=== PATIENT | male | born 1980 | race Caucasian/White ===

== ENCOUNTER 2018-08-27 19:59 | Emergency (ER) | payer SELFPAY ==
[~2018-08-27] VITALS: Ht 167.6 cm; Wt 65.8 kg
[2018-08-27 20:07] VITALS: Ht 167.6 cm; Wt 65.8 kg
[2018-08-27 22:19] VITALS: BP 111/74
== END 2018-08-27 22:19 | disposition home or self-care (01) ==
LOC: ED 19:59
DX: S20.219A Contusion of unspecified front wall of thorax, initial encounter (principal); V48.6XXA Car passenger injured in noncollision transport accident in traffic accident, initial encounter; Y93.89 Activity, other specified; Y92.488 Other paved roadways as the place of occurrence of the external cause; Y99.8 Other external cause status
CPT/HCPCS: G0480

== ENCOUNTER 2018-08-28 17:59 | Emergency (ER) | payer SELFPAY | END 2018-08-28 19:15 | disposition left against medical advice (07) | LOC: ED 17:59 | DX: Z53.21 Procedure and treatment not carried out due to patient leaving prior to being seen by health care provider (principal) ==

== ENCOUNTER 2018-08-28 21:30 | Emergency (ER) | payer SELFPAY ==
[~2018-08-28] VITALS: Ht 167.6 cm; Wt 68.9 kg
[2018-08-28 22:37] VITALS: Ht 167.6 cm; Wt 68.9 kg
[2018-08-29 00:50] VITALS: BP 128/78
== END 2018-08-29 00:50 | disposition home or self-care (01) ==
LOC: ED 21:30
DX: S06.0X1A Concussion with loss of consciousness of 30 minutes or less, initial encounter (principal); V89.2XXA Person injured in unspecified motor-vehicle accident, traffic, initial encounter; Y93.89 Activity, other specified; Y92.89 Other specified places as the place of occurrence of the external cause; Y99.8 Other external cause status
CPT/HCPCS: J1885; Q0162